=== PATIENT | male | born 2000 | race Hispanic/Latino ===

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

== ENCOUNTER 2022-06-26 18:05 | Emergency (ER) | payer MEDICAID ==
[~2022-06-26] VITALS: Ht 167.6 cm; Wt 84.0 kg
[2022-06-26 18:15] VITALS: BP 107/76
[2022-06-26 18:31] VITALS: BP 130/82
[2022-06-26] MEDS ORDERED: VOLTAREN - GENE75 MG PO (19:28)
[2022-06-26 19:29] VITALS: BP 153/62
[2022-06-26 19:30] VITALS: BP 131/83
[2022-06-26 19:33] VITALS: BP 131/83
== END 2022-06-26 19:46 | disposition home or self-care (01) ==
LOC: ED 18:05
DX: M25.511 Pain in right shoulder (principal); R07.89 Other chest pain